=== PATIENT | male | born 1950 | race Two or more races ===

== ENCOUNTER 2025-02-05 07:15 | Outpatient (CLI) | payer OTHER ==
[~2025-02-05 07:15] MED LIST: ASA81 MG PO; AVAPRO; LIPITOR; METFORMIN
== END 2025-02-05 07:23 | disposition home or self-care (01) ==
LOC: SONOGRAMA 07:15
PROVIDERS: ATTEND Specialist/Technologist, Other Nephrology
DX: R10.9 Unspecified abdominal pain (principal); N18.30 Chronic kidney disease, stage 3 unspecified; R31.9 Hematuria, unspecified

== ENCOUNTER 2025-09-06 07:18 | Outpatient (CLI) | payer OTHER | END 2025-09-06 07:20 | disposition home or self-care (01) | LOC: SONOGRAMA 07:18 | PROVIDERS: ATTEND Internal Medicine Endocrinology, Diabetes & Metabolism | DX: K76.0 Fatty (change of) liver, not elsewhere classified (principal); I11.9 Hypertensive heart disease without heart failure; E78.2 Mixed hyperlipidemia; N18.2 Chronic kidney disease, stage 2 (mild) ==